=== PATIENT | female | born 2000 | race Caucasian/White ===

== ENCOUNTER 2021-07-23 14:25 | Emergency (ER) | payer OTHER ==
--- NOTE | 2021-07-23 15:02 | CR ---
INDICATION: Trauma; bruising to the 2nd and 3rd metacarpal area. COMPARISON: None. TECHNIQUE: Three-view study right hand. FINDINGS: No evidence of fracture or dislocation. No bone or soft tissue abnormalities. IMPRESSION: Negative radiographic examination of the right hand. Dictated by Zoe Fabian MD @ 07/23/2021 3:01:02 PM (Electronically Signed)
--- NOTE | 2021-07-23 15:12 | EDM.PDOC ---
ED HPI GENERAL MEDICAL PROBLEM - General Chief Complaint: Upper Extremity Injury/Pain Stated Complaint: SLAMMED RIGHT HAND IN TRUCK DOOR Time Seen by Provider: 07/23/21 15:05 Source of Information: Reports: Patient History Limitations: Reports: No Limitations - History of Present Illness INITIAL COMMENTS - FREE TEXT/NARRATIVE: 21-year-old female no past medical history presents for right hand injury. 4 days ago patient accidentally shot her right hand in a door. She has noted bruising and pain ever since. Right Hand Pain Score (Numeric/FACES): 4 - Related Data Allergies Allergy/AdvReac Type Severity Reaction Status Date / Time ibuprofen Allergy Mild Swelling Verified 07/23/21 15:05 Review of Systems - Review of Systems Review Of Systems: Comprehensive ROS is negative, except as noted in HPI. ED EXAM, GENERAL - Physical Exam Exam: See Below Exam Limited By: No Limitations General Appearance: Alert, WD/WN, No Apparent Distress Ears: Hearing Grossly Normal Throat/Mouth: Normal Voice, No Airway Compromise Head: Atraumatic, Normocephalic Neck: Normal Inspection Respiratory/Chest: No Respiratory Distress, Lungs Clear, Normal Breath Sounds, No Accessory Muscle Use Cardiovascular: Normal Peripheral Pulses, Regular Rate, Rhythm Extremities: Other (swelling and ecchymosis of R dorsal hand, intact real estate administrator strength, normal R radial pulse) Neurological: Alert Psychiatric: Normal Affect, Normal Mood Skin Exam: Warm, Dry, Intact, Normal Color Course - Vital Signs Last Recorded V/S: Last Vital Signs Temp 97.4 F 07/23/21 15:01 Pulse 75 07/23/21 15:01 Resp 18 07/23/21 15:01 BP 121/68 07/23/21 15:01 Pulse Ox 97 07/23/21 15:01 - Re-Assessments/Exams Free Text/Narrative Re-Assessment/Exam: 07/23/21 15:11 Axillary x-ray imaging does not reveal evidence of fracture or dislocation. Departure - Departure Time of Disposition: 15:11 Disposition: Home, Self-Care 01 Condition: Good Clinical Impression: Contusion of hand, right Qualifiers: Encounter type: initial encounter Qualified Code(s): S60.221A - Contusion of right hand, initial encounter - Discharge Information Instructions: Contusion, [id number] Referrals: PCP,None [Primary Care Provider] - Additional Instructions: The following information is given to patients seen in the emergency department who are being discharged to home. This information is to outline your options for follow-up care. We provide all patients seen in our emergency department w ith a follow-up referral. The need for follow-up, as well as the timing and circumstances, are variable depending upon the specifics of your emergency department visit. If you don't have a primary care physician on staff, we will provide you with a referral. We always advise you to contact your personal physician following an emergency department visit to inform them of the circumstance of the visit and for follow-up with them and/or the need for any referrals to a consulting specialist. The emergency department will also refer you to a specialist when appropriate. This referral assures that you have the opportunity for follow-up care with a specialist. All of these measure are taken in an effort to provide you with optimal care, which includes your follow-up. Under all circumstances we always encourage you to contact your private physician who remains a resource for coordinating your care. When calling for follow-up care, please make the office aware that this follow-up is from your recent emergency room visit. If for any reason you are refused follow-up, please contact the [facility] Emergency Department at and asked to speak to the emergency department charge nurse. Please follow up with your primary care physician. If you do not have a primary care physician, see below: [facility] [address] [place] [id number] [facility] [address] [place] [address] [facility] [address] [place] [id number] Sepsis Event Note (ED) - Focused Exam Vital Signs: Vital Signs Temp Pulse Resp BP Pulse Ox 07/23/21 15:01 97.4 F 75 18 121/68 97
== END 2021-07-23 15:19 | disposition home or self-care (01) ==
LOC: MW.ED 14:25 → EDSEX 14:25 → MW.ED 15:19
DX: S60.221A Contusion of right hand, initial encounter (principal); Z88.6 Allergy status to analgesic agent; W23.0XXA Caught, crushed, jammed, or pinched between moving objects, initial encounter
CPT/HCPCS: 73130-26-RT; 73130-RT; 99283-25

== ENCOUNTER 2022-07-27 07:55 | Emergency (ER) | payer BC ==
[2022-07-27] MEDS ORDERED: Albuterol 0.083% 2.5 MG/3 ML Neb Soln NEB ONE (08:24)
[2022-07-27 09:17] LABS: CORONAVIRUS COVID-19 NAA NEGATIVE (NEGATIVE); INFLUENZA A NAA NEGATIVE (NEGATIVE); INFLUENZA B NAA NEGATIVE (NEGATIVE); RESPIRATORY SYNCYTIAL VIR NAA NEGATIVE (NEGATIVE)
== END 2022-07-27 10:00 | disposition home or self-care (01) ==
LOC: MW.ED 07:55
DX: O99.513 Diseases of the respiratory system complicating pregnancy, third trimester (principal); J40 Bronchitis, not specified as acute or chronic; Z3A.28 28 weeks gestation of pregnancy; Z88.6 Allergy status to analgesic agent; Z20.822 Contact with and (suspected) exposure to COVID-19
CPT/HCPCS: 0241U; 71045; 99285; 99284

== ENCOUNTER 2022-10-15 23:19 | Inpatient (IN) | payer BC ==
[2022-10-16] MEDS ORDERED: Butorphanol 1 MG/ML SDV IVPUSH PRN (00:12)
[2022-10-16] MEDS ORDERED: Misoprostol 200 MCG Tab PO PRN (00:12)
[2022-10-16] MEDS ORDERED: Methylergonovine 0.2 MG/1 ML Amp IM PRN (00:12)
[2022-10-16] MEDS ORDERED: Tranexamic Acid 1,000 MG in Sodium Chloride 0.9% 100 ML IV PRN (00:12)
[2022-10-16] MEDS ORDERED: Ondansetron 4 MG/2 ML SDV IVPUSH PRN (00:12)
[2022-10-16] MEDS ORDERED: Water For Irrigation,Sterile 1,000 ML Container IRR PRN (00:12)
[2022-10-16] MEDS ORDERED: Carboprost Tromethamine 250 MCG/1 ML Amp IM PRN (00:12)
[2022-10-16] MEDS ORDERED: Lidocaine 1% 50 ML MDV INJECT PRN (00:12)
[2022-10-16] MEDS ORDERED: Sodium Chloride 0.9% 10 ML Syringe FLUSH PRN (00:12)
[2022-10-16] MEDS ORDERED: Sodium Chloride 0.9% 2.5 ML Syringe FLUSH PRN (00:12)
[2022-10-16] MEDS ORDERED: Sodium Chloride 0.9% 20 ML SDV IV PRN (00:12)
[2022-10-16] MEDS ORDERED: Oxytocin/0.9 % Sodium Chloride 30 UNIT/500 ML BAG IV SCH (00:15)
[2022-10-16] MEDS ORDERED: Lactated Ringers 1,000 ML IV SCH (00:15)
[2022-10-16] MEDS ORDERED: Bisacodyl 10 MG Supp RECTAL PRN (16:04)
[2022-10-16] MEDS ORDERED: Benzocaine/Menthol 20%-0.5% Spray 78 GM Cannister TOP PRN (16:04)
[2022-10-16] MEDS ORDERED: Lanolin 100% Cream 7 GM Tube TOP PRN (16:04)
[2022-10-16] MEDS ORDERED: Acetaminophen 500 MG Tab PO PRN (16:04)
[2022-10-16] MEDS ORDERED: Docusate Sodium 100 MG Cap PO PRN (16:04)
[2022-10-16] MEDS ORDERED: oxyCODONE 5 MG Tab PO PRN (16:04)
[2022-10-16] MEDS: Witch Hazel Medicated Pads 40/Jar TOP PRN (16:40)
[2022-10-16] MEDS: Acetaminophen 500 MG Tab PO PRN (17:53)
[2022-10-17] MEDS: Acetaminophen 500 MG Tab PO PRN ×2 (00:32→07:52)
[2022-10-17] MEDS: Witch Hazel Medicated Pads 40/Jar TOP PRN (14:25)
== END 2022-10-17 19:10 | disposition home or self-care (01) | DRG 560 ==
LOC: MW.OBCHECK 23:19 → MW.OB 23:20 → MW.OBCHECK 10-16 00:12 → OBSVTOIN 10-16 15:40 → MW.OB 10-16 18:21
PROVIDERS: ADMIT Obstetrics & Gynecology; ATTEND Obstetrics & Gynecology
PROC: 10E0XZZ Delivery of Products of Conception, External Approach (ICD-10-PCS; principal; 2022-10-16)
PROC: 0KQM0ZZ Repair Perineum Muscle, Open Approach (ICD-10-PCS; 2022-10-16)
DX: O70.1 Second degree perineal laceration during delivery (principal); Z20.822 Contact with and (suspected) exposure to COVID-19; Z37.0 Single live birth; Z3A.39 39 weeks gestation of pregnancy
CPT/HCPCS: 36415; 59025; 59409; 82803; 85014; 85018; 85027; 86592; 86850; 86900; 86901; A9270-GY; J2001; J2590; J3490; J7120; U0002